=== PATIENT | female | born 1985 | race African-American/Black ===

== ENCOUNTER 2018-03-04 11:14 | Emergency (ER) | payer MEDICAID ==
[~2018-03-04] VITALS: Ht 170.2 cm; Wt 59.0 kg
[2018-03-04] MEDS ORDERED: NKM (11:35)
[2018-03-04 12:33] LABS: APPEARANCE,URINE CLEAR; BASOPHILS % (AUTO) 0.6 % (0.0-2.0); BILIRUBIN, URINE NEGATIVE (NEGATIVE); COLOR,URINE PALE YELLOW; GLUCOSE, URINE (UA) NEGATIVE (NEGATIVE); HEMATOCRIT 34.6 % (37.0-47.0); HEMOGLOBIN 11.9 G/DL (12.0-16.0); KETONES,URINE NEGATIVE (NEGATIVE); LEUKOCYTE ESTERASE ,URINE NEGATIVE (NEGATIVE); LYMPHOCYTES % (AUTO) 14.2 % (20.0-45.0); MEAN CORPUSCULAR VOLUME 97 FL (80-99); MONOCYTES % (AUTO) 5.9 % (1.0-10.0); NEUTROPHILS % (AUTO) 78.3 % (45.0-75.0); NITRITE,URINE NEGATIVE (NEGATIVE); PH,URINE 8 (4.5-8.0); PLATELET COUNT 179 K/UL (150-450); PROTEIN,URINE NEGATIVE (NEGATIVE); RED BLOOD COUNT 3.58 M/UL (4.20-5.40); RED CELL DISTRIBUTION WIDTH 11.2 % (11.6-14.8); UROBILINOGEN,URINE NORMAL MG/DL (0.0-1.0); WHITE BLOOD COUNT 9.3 K/UL (4.8-10.8)
[2018-03-04 12:55] LABS: ANION GAP 8 mmol/L (5-15); BLOOD UREA NITROGEN 10 mg/dL (7-18); CALCIUM 8.4 MG/DL (8.5-10.1); CARBON DIOXIDE 25 MMOL/L (21-32); CHLORIDE 104 MMOL/L (98-107); CREATININE 0.6 MG/DL (0.55-1.30); POTASSIUM 3.5 MMOL/L (3.5-5.1); SODIUM 137 MMOL/L (136-145)
[2018-03-04 12:59] LABS: ALANINE AMINOTRANSFERASE 21 U/L (12-78); ALBUMIN/GLOBULIN RATIO 0.8 (1.0-2.7); ALKALINE PHOSPHATASE 43 U/L (46-116); ASPARTATE AMINO TRANSFERASE 22 U/L (15-37); BILIRUBIN,TOTAL 0.4 MG/DL (0.2-1.0)
--- NOTE | 2018-03-04 14:04 | Diagnostic Imaging Report ---
Indication: Vaginal bleeding, pelvic pain, patient Technique: Transabdominal images of the uterus Comparison: none Findings: There is a live single intrauterine , demonstrating transverse and variable lie. There is positive heart activity, heart rate 157 bpm. The placenta is posterior, there is internal cervical os.. Small anechoic cystic structure seen deep to and at the edge of the placenta, nonspecific. Normal amniotic fluid volume, amniotic fluid index 10 cm. measurements as follows: Biparietal diameter 34 mm, 16 weeks 4 days; head circumference one 26 mm, 16 weeks 3 days; abdominal circumference 110 mm, 16 weeks 6 days; femur length 20 mm, 16 weeks one. Estimated gestational age by average of ultrasound measurements is 16 weeks 4 days. Estimated date of delivery 08/15/2018. Estimated gestational age by dates also 16 weeks 4 days. Due to very early , emergent nature of the exam, assessment of anatomy is limited. Normal four-chamber heart, spine, stomach, urinary bladder, three-vessel cord demonstrated. The the right ovary is normal in size. The left ovary is not visualized. No adnexal mass demonstrated. Impression: 16 week 4 day, by average ultrasound measurements, single live intrauterine , no unusual features Small cyst at the edge of the placenta, probably a small placental bender, incidentally noted
[2018-03-04] MEDS ORDERED: METROGEL-VAGINA70 G1 VAGIN (14:11)
[2018-03-04 14:25] VITALS: BP 127/73
--- NOTE | 2018-03-05 15:16 | Emergency Room Report ---
History of Present Illness General Chief Complaint: Complications Source: Patient Present Illness HPI 33-year-old female presents ED for evaluation. Patient complaining of spotting and vaginal discharge. Patient states symptoms started a few days ago. Patient states she recently found out she is . Approximately 16 weeks as per last menstrual period. States pain is sharp, 7 out of 10, nonradiating. States she notes greenish vaginal discharge. Denies any recent unprotected intercourse. Denies nausea or vomiting. Has not seen TELEX OPERATOR yet. No other aggravating relieving factors. Denies any other associated symptoms Allergies: Coded Allergies: No Known Allergies (Unverified , 03/04/18) Patient History Past Medical History: none Past Surgical History: none Pertinent Family History: none Social History: Denies: smoking, alcohol use, drug use Last Menstrual Period: 11/08/2017 Now: Yes : 1 Para: 0 Immunizations: UTD Reviewed Nursing Documentation: PMH: Agreed; PSxH: Agreed Nursing Documentation-PMH Past Medical History: No Stated History Review of Systems All Other Systems: negative except mentioned in HPI Physical Exam Vital Signs Date Time Temp Pulse Resp B/P (MAP) Pulse Ox O2 Delivery O2 Flow Rate FiO2 03/04/18 11:29 98.3 84 16 115/77 98 Room Air 98.2 Sp02 EP Interpretation: reviewed, normal General Appearance: no apparent distress, alert, GCS 15, non-toxic Head: normocephalic, atraumatic Eyes: bilateral eye normal inspection, bilateral eye PERRL ENT: hearing grossly normal, normal pharynx, no angioedema, normal voice Neck: full range of motion, supple/symm/no masses Respiratory: chest non-tender, lungs clear, normal breath sounds, speaking full sentences Cardiovascular #1: regular rate, rhythm, no edema Cardiovascular #2: 2+ carotid (R), 2+ carotid (L), 2+ radial (R), 2+ radial (L) , 2+ dorsalis pedis (R), 2+ dorsalis pedis (L) Gastrointestinal: normal bowel sounds, non tender, soft, non-distended, no guarding, no rebound Rectal: deferred Genitourinary: no CVA tenderness, other - 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 white/green discharge in cervix. no CMT Musculoskeletal: back normal, gait/station normal, normal range of motion, non- tender Neurologic: alert, oriented x3, responsive, motor strength/tone normal, sensory intact, speech normal Psychiatric: judgement/insight normal, memory normal, mood/affect normal, no suicidal/homicidal ideation Reflexes: 3+ bicep (R), 3+ bicep (L), 3+ tricep (R), 3+ tricep (L), 3+ knee (R) , 3+ knee (L) Skin: normal color, no rash, warm/dry, well hydrated Lymphatic: no adenopathy Medical Decision Making Diagnostic Impression: Primary Impression: Threatened Additional Impression: Bacterial vaginosis ER Course Hospital Course 33-year-old female presents to ED complaining of lower abdominal pain with spotting/discharge. + Differential diagnoses include: gastrits, gastroenterits, ectopic , ovarian torsion/cyst, UTI Clinical course Patient placed on stretcher in ED. After initial history and physical I ordered labs, ultrasound. Pelvic exam performed. Broadcast Director Operations present. White discharge obtained for wet mount Labs-no leukocytosis, electrolytes okay, UA negative wet mount shows some clue cells Pelvic ultrasound-IUP detected with heart rate Discussed findings with patient. We will treat for BV with MetroGel. Given referral for TELEX OPERATOR Diagnosis - threatened , bacterial vaginosis Stable and discharged to home with Rx metrogel. Followup with PMD/TELEX OPERATOR. Return to ED if symptoms recur or worsen Labs Test 03/04/18 11:52 White Blood Count 9.3 K/UL (4.8-10.8) Red Blood Count 3.58 M/UL (4.20-5.40) Hemoglobin 11.9 G/DL (12.0-16.0) Hematocrit 34.6 % (37.0-47.0) Mean Corpuscular Volume 97 FL (80-99) Mean Corpuscular Hemoglobin 33.2 PG (27.0-31.0) Mean Corpuscular Hemoglobin Concent 34.3 G/DL (32.0-36.0) Red Cell Distribution Width 11.2 % (11.6-14.8) Platelet Count 179 K/UL (150-450) Mean Platelet Volume 8.0 FL (6.5-10.1) Neutrophils (%) (Auto) 78.3 % (45.0-75.0) Lymphocytes (%) (Auto) 14.2 % (20.0-45.0) Monocytes (%) (Auto) 5.9 % (1.0-10.0) Eosinophils (%) (Auto) 1.0 % (0.0-3.0) Basophils (%) (Auto) 0.6 % (0.0-2.0) Urine Color Pale yellow Urine Appearance Clear Urine pH 8 (4.5-8.0) Urine Specific Ryder 1.010 (1.005-1.035) Urine Protein Negative (NEGATIVE) Urine Glucose (UA) Negative (NEGATIVE) Urine Ketones Negative (NEGATIVE) Urine Occult Blood Negative (NEGATIVE) Urine Nitrite Negative (NEGATIVE) Urine Bilirubin Negative (NEGATIVE) Urine Urobilinogen Normal MG/DL (0.0-1.0) Urine Leukocyte Esterase Negative (NEGATIVE) Urine HCG, Qualitative Positive (NEGATIVE) Sodium Level 137 MMOL/L (136-145) Potassium Level 3.5 MMOL/L (3.5-5.1) Chloride Level 104 MMOL/L (98-107) Carbon Dioxide Level 25 MMOL/L (21-32) Anion Gap 8 mmol/L (5-15) Blood Urea Nitrogen 10 mg/dL (7-18) Creatinine 0.6 MG/DL (0.55-1.30) Estimat Glomerular Filtration Rate > 60 mL/min (>60) Glucose Level 81 MG/DL (74-106) Calcium Level 8.4 MG/DL (8.5-10.1) Total Bilirubin 0.4 MG/DL (0.2-1.0) Aspartate Amino Transf (AST/SGOT) 22 U/L (15-37) Alanine Aminotransferase (ALT/SGPT) 21 U/L (12-78) Alkaline Phosphatase 43 U/L (46-116) Total Protein 6.9 G/DL (6.4-8.2) Albumin 3.0 G/DL (3.4-5.0) Globulin 3.9 g/dL Albumin/Globulin Ratio 0.8 (1.0-2.7) Lipase 192 U/L (73-393) Human Chorionic Gonadotropin, Quant 81515 mIU/mL (1-6) CT/MRI/US Diagnostic Results CT/MRI/US Diagnostic Results : Imaging Test Ordered: OB US Impression IUP noted. 16 weeks approximately. +FHR Last Vital Signs Date Time Temp Pulse Resp B/P (MAP) Pulse Ox O2 Delivery O2 Flow Rate FiO2 03/04/18 14:25 98.4 83 16 127/73 100 Room Air Disposition: HOME, SELF-CARE Condition: Stable Scripts Metronidazole* (METROGEL-VAGINAL*) 70 Gm Gel.w.appl 1 APPL VAGIN BEDTIME for 7 Days, GM Prov: Dean Glass MD 03/04/18 Referrals: [facility]/,REFERRING (PCP) Yue Williamson M.D. Patient Instructions: Bacterial Vaginosis, [id number], Threatened Miscarriage , [id number] Dean Glass MD Mar 05, 2018 15:16
== END 2018-03-04 14:35 | disposition home or self-care (01) ==
LOC: EMR 11:50
DX: O20.0 Threatened abortion (principal); Z3A.16 16 weeks gestation of pregnancy; O23.592 Infection of other part of genital tract in pregnancy, second trimester; N76.0 Acute vaginitis; B96.89 Other specified bacterial agents as the cause of diseases classified elsewhere
CPT/HCPCS: 36415; 76805; 80053; 81003; 81025; 83690; 84702; 85025; 87210; 99284